=== PATIENT | female | born 1945 | race Caucasian/White ===

== ENCOUNTER 2017-08-10 07:49 | Emergency (ER) | payer OTHER, BC ==
[~2017-08-10] VITALS: Ht 157.5 cm; Wt 93.6 kg
[~2017-08-10 07:49] MED LIST: ASCORBIC ACID500 M3 PO; BENADRYL25 MG PO; BISACODYL5 MG PO; CELEBREX200 MG PO; COUMADIN1 MG PO; COUMADIN2 MG PO; COUMADIN4 MG PO; DIOVAN HCT 31 TABLE1 PO; DOK PLUS TABLE1 EACH PO; FERROUS SULFAT325 MG PO; FOLIC ACID1 MG PO; HYDROCHLOROTHIA25 MG PO; IRON325 M1 PO; LIDOCAINE700 MG TD; MILK OF MAGNESI10 ML PO; OXYCODONE HCL5 MG PO; SIMVASTATIN20 MG PO; THERAGRAN1 TABLET PO; TOPROL XL25 MG PO; TYLENOL REGULA325 MG PO
[2017-08-10 08:54] LABS: HEMATOCRIT 39.3 % (36.0-46.0); MCH 29.3 PG (29.0-34.0); MCHC 33.1 G/DL (30.0-36.0); MCV 88.5 FL (83-99); MEAN PLAT.VOLUME 10.4 uM^3 (9.5-12.4); PLATELET COUNT 172 K/uL (156-360); RBC DIS.WIDTH-CV 13.9 % (11.8-14.6); RBC DIS.WIDTH-SD 44.9 % (39-53); RED BLOOD COUNT 4.44 M/uL (3.80-5.20); WHITE BLOOD COUNT 7.5 K/uL (4.1-10.2)
[2017-08-10 09:03] LABS: INTER. NORMALIZED RATIO 3.8; PROTHROMBIN TIME 44.2 SEC (10.2-12.9)
[2017-08-10 09:06] LABS: ADD MIUA? YES; BILIRUBIN NEGATIVE; BLOOD LARGE; GLUCOSE (STRIP) NEGATIVE; KETONES NEGATIVE; LEUKOCYTES SMALL; NITRITE NEGATIVE; PROTEIN (STRIP) 30; SPECIFIC GRAVITY 1.013 (1.000-1.030); UROBILINOGEN 0.2 MG/DL (0.2-1.0)
[2017-08-10 09:10] LABS: COLOR RED ((YELLOW))
[2017-08-10 09:22] LABS: BACTERIA RARE /HPF; EPITHELIAL CELLS 1+ /HPF; MUCUS NONE SEEN /LPF; RED BLOOD CELLS TNTC /HPF (0-5); UCUL ADDED? YES
[2017-08-10 09:23] LABS: CASTS NONE SEEN /LPF; CRYSTALS NONE SEEN
[2017-08-10 09:26] LABS: ANION GAP 7 MEQ/L (2-14); CHLORIDE 104 MEQ/L (99-109); POTASSIUM 4.2 MEQ/L (3.7-5.4); SAMPLE HEMOLYSIS CHECK 0; SAMPLE ICTERIC CHECK 0; SAMPLE LIPEMIA CHECK 0; SODIUM 141 MEQ/L (136-147); TOTAL BILIRUBIN 0.8 MG/DL (0.0-1.0)
[2017-08-10 09:32] LABS: ALKALINE PHOSPHATASE 86 IU/L (3-129); GFR ESTIMATE (CALCULATED) > 59 mL/min/; GLUCOSE 94 mg/dL (70-99); UREA NITROGEN (BUN) 24 mg/dL (9-23)
[2017-08-10] MEDS ORDERED: NAPROSYN500 MG PO (12:34)
[2017-08-10 13:30] VITALS: BP 169/92
[2017-08-10] MEDS ORDERED: KEFLEX500 MG PO (14:24)
== END 2017-08-10 13:30 | disposition home or self-care (01) ==
LOC: EME 07:49
PROVIDERS: Nurse Practitioner Family
DX: N93.8 Other specified abnormal uterine and vaginal bleeding (principal); N39.0 Urinary tract infection, site not specified; D25.9 Leiomyoma of uterus, unspecified; Z79.01 Long term (current) use of anticoagulants; E78.5 Hyperlipidemia, unspecified; I10 Essential (primary) hypertension; Z95.2 Presence of prosthetic heart valve; Z87.891 Personal history of nicotine dependence; Z88.0 Allergy status to penicillin
CPT/HCPCS: 76856; 80053; 81003; 85027; 85610; 87086; 93005; 99281; 99285; J1885

== ENCOUNTER 2017-08-19 09:53 | Day surgery (SDC) | payer OTHER, BC ==
[~2017-08-19] VITALS: Ht 157.5 cm; Wt 93.0 kg
[~2017-08-19 09:53] MED LIST changes: +KEFLEX500 MG PO; +NAPROSYN500 MG PO
[2017-08-19 10:25] VITALS: BP 187/86
[2017-08-19 10:41] LABS: INTER. NORMALIZED RATIO 1.5; PROTHROMBIN TIME 16.9 SEC (10.2-12.9); PTT 31.6 SEC (25-37)
[2017-08-19 13:45] VITALS: BP 160/76
[2017-08-19 14:39] VITALS: BP 190/82
== END 2017-08-19 14:40 | disposition home or self-care (01) ==
LOC: SDC 09:53
PROVIDERS: Obstetrics & Gynecology
PROC: 0UDB8ZX Extraction of Endometrium, Via Natural or Artificial Opening Endoscopic, Diagnostic (ICD-10-PCS; principal; 2017-08-19)
DX: C54.1 Malignant neoplasm of endometrium (principal); Z79.01 Long term (current) use of anticoagulants; Z95.2 Presence of prosthetic heart valve; I35.0 Nonrheumatic aortic (valve) stenosis; Z96.651 Presence of right artificial knee joint; I10 Essential (primary) hypertension; Z88.0 Allergy status to penicillin
CPT/HCPCS: 85610; 85730; 88305; J0131; J2250; J2405; J3010